=== PATIENT | female | born 1945 | race Caucasian/White ===

== ENCOUNTER 2019-11-25 08:00 | Day surgery (SDC) | payer MEDICARE, OTHER ==
[~2019-11-25] VITALS: Ht 177.8 cm; Wt 97.5 kg
[~2019-11-25 08:00] MED LIST: TRAZODONE HCL100 MG PO
--- NOTE | 2019-11-25 10:34 | NUR ---
11/25/19 Cassandra4 Madonna Marquez 1026- PT ARRIVES TO PACU ALERT AND ORIENTED TALKING WITH STAFF. RESP EVEN AND UNLABORED. OXYGEN SAT HIGH 90'S TO 100% ON 2L VIA NC. PT REPORTS NO PAIN OR NAUSEA. 1033- OXYGEN TITRATED OFF. PT SITTING UP IN BED. PT REPORTS NO DIZZINESS, NAUSEA, OR PAIN.
--- NOTE | 2019-11-28 09:22 | OR ---
[facility] [address] [place], [place] [address] Signed DATE OF OPERATION: 11/25/2019 SURGEON: Prerna Ureña MD PREOPERATIVE DIAGNOSES: 1. History of polyps in 2006, normal colonoscopy 2011. 2. Family history of colon cancer (father). POSTOPERATIVE DIAGNOSES: 1. Sigmoid diverticulosis. 2. Internal hemorrhoids. 3. Polyps x2 (cecum and 60 cm). PROCEDURE: Total colonoscopy to cecum with cold morcellation, excision of polyp at 50 cm and hot snare polypectomy at cecum. ANESTHESIA: Intravenous sedation, fentanyl 100 mcg, Versed 5 mg. INDICATION: This 74-year-old white woman is a patient of MEAGAN Coy. She had undergone colonoscopy by me in the past including excision of a tubular adenoma in the transverse colon in 2006. Her last colonoscopy in 2011 was normal. She does have family history of colon cancer in her father who lived to [facility]. She is symptom free currently. She is admitted to undergo surveillance colonoscopy, understand the risks of bleeding, infection, and perforation. FINDINGS: The prep was excellent. Complete colonoscopy was undertaken to the cecum without question. She had numerous diverticula of the sigmoid and left colon. There were two polyps, one in the cecum, one in the left colon at 50 cm, both excised completely. She also had internal hemorrhoids on retroflexed view. DESCRIPTION OF PROCEDURE: The patient was brought to the endoscopy suite and placed in lateral decubitus position, given intravenous sedation to the point of slurred speech and nystagmus. Digital rectal examination was normal. An Olympus video colonoscope was passed in the rectum and manipulated throughout the Electronically Signed By: PRERNA UREÑA MD 11/28/19 0922 PATIENT NAME: CATERINA BARILLAS OPERATIVE REPORT DATE OF : 43 REPORT #: [id number] PHYSICIAN: PRERNA UREÑA MD PCP: NELLI MIRANDA PA-C REPORT IS CONFIDENTIAL AND NOT TO BE RELEASED WITHOUT AUTHORIZATION [facility] [address] [place], [place] [address] Signed colon noting numerous diverticula of the sigmoid and left colon. Scope was ultimately passed to the cecum. The ileocecal valve and appendiceal orifice were normal. There was mild inflammation of the cecum and a biopsy was taken there. The scope was withdrawn short distance and a small polyp was noted that was likely adenomatous based on its appearance with narrow band imaging. This was excised with hot snare polypectomy technique and additional cold morcellation technique. Once completely gone, the scope was then withdrawn. Examination showed no sign of abnormality until 50 cm from the anal verge where a small polyp was noted and this was excised with cold morcellation technique. Further withdrawal of scope confirmed multiple diverticula. Retroflexed view of the rectum showed internal hemorrhoids. She was taken to recovery room in good condition. CONCLUDING DIAGNOSES: Two polyps and diverticulosis and internal hemorrhoids. PLAN: Recommend high-fiber diet. Repeat colonoscopy in 5 years sooner if symptoms should occur. She will return to the ongoing care for MEAGAN Coy. MD LINDY Gann/KATHY /[id number] cc: Nelli Miranda PA-C Copies: NELLI MIRANDA PA-C ~ Electronically Signed By: PRERNA UREÑA MD 11/28/19 0922 PATIENT NAME: CATERINA BARILLAS OPERATIVE REPORT DATE OF : 43 REPORT #: [id number] PHYSICIAN: PRERNA UREÑA MD PCP: NELLI MIRANDA PA-C REPORT IS CONFIDENTIAL AND NOT TO BE RELEASED WITHOUT AUTHORIZATION
--- NOTE | 2019-11-28 17:17 | PATH ---
[facility] [address] [place], [place] [address] Signed SPECIMEN(S): A CECUM SPECIMEN(S): B CECAL POLYP SPECIMEN(S): C COLON POLYP AT 50 CM SPECIMEN SOURCE: A. CECUM B. CECAL POLYP C. COLON POLYP AT 50 CM CLINICAL HISTORY: History of polyp. Family history of colon cancer. Post: Internal hemorrhoids, diverticulosis, polyp x2. MICROSCOPIC DESCRIPTION: Histologic sections of all submitted blocks are examined by light microscopy. These findings, together with the gross examination, support the pathologic diagnosis. FINAL PATHOLOGIC DIAGNOSIS: A. Colon, cecum, biopsy: - Fragments of colonic mucosa with no histopathologic abnormality. - Negative for dysplasia or malignancy. B. Colon, cecum, polyp, polypectomy: - Fragments of colonic mucosa with mucosal capillary congestion and hemorrhage. - Fragments of submucosal tissue. - Negative for dysplasia or malignancy. - See Comment. C. Colon, polyp at 50 cm, polypectomy: - Fragments of tubular adenoma. - Negative for high-grade dysplasia or malignancy. COMMENT: Multiple additional levels of the "cecal polyp" were examined. No signs of ischemia, including lamina propria fibrosis, crypt injury, or ulceration is seen. No histologic evidence of a lesion is noted. Correlation with clinical and colonoscopic findings is recommended. NAL:cml:C2NR GROSS DESCRIPTION: Three specimens are received in three containers, labeled "CA." A. The specimen, labeled "CA, #1" and "cecum" on the requisition, is received PATIENT NAME: NARGISCATERINA PATHOLOGY DATE OF : 43 REPORT #: [id number] PHYSICIAN: GAUDENCIO SHEEHAN PCP: MAYELIN CAMPOS PA-C REPORT IS CONFIDENTIAL AND NOT TO BE RELEASED WITHOUT AUTHORIZATION [facility] [address] [place], [place] [address] Signed in formalin and consists of two soft colbert tissue fragments that measure 0.2 and 0.3 cm that are submitted in toto in cassette A1. B. The specimen, labeled "CA, #2" and "cecal polyp" on the requisition, is received in formalin and consists of seven soft colbert red tissue fragments that vary from 0.1-0.2 cm and are submitted in toto in cassette B1. C. The specimen, labeled "CA, #3" and "colon polyp at 50 cm" on the requisition, is received in formalin and consists of three soft colbert tissue fragments that measure 0.1 cm each and are submitted in toto in cassette C1. SS (under the direct supervision of a pathologist) The Gross Description was prepared using a voice recognition system. The report was reviewed for accuracy; however, sound-alike word errors, addition and/or deletions may occur. If there is any question about this report, please contact Client Services. PERFORMING LABORATORY: The technical component was performed by [facility], [address] [place] [id number] (Kennel Operator: Yaa Bauman MD; CLIA# [id number]). [facility], [address] [address] (CLIA# [id number]). Diagnostician: Chika Kahn MD Pathologist Electronically Signed 11/28/2019 Copies: ~ PATIENT NAME: CATERINA BARILLAS PATHOLOGY DATE OF : 43 REPORT #: [id number] PHYSICIAN: GAUDENCIO PATHOLOGY PCP: MAYELIN CAMPOS PA-C REPORT IS CONFIDENTIAL AND NOT TO BE RELEASED WITHOUT AUTHORIZATION
== END 2019-11-25 11:05 | disposition home or self-care (01) ==
LOC: DS 08:00 → OPS 08:00
PROVIDERS: Surgery
PROC: 0DBE8ZZ Excision of Large Intestine, Via Natural or Artificial Opening Endoscopic (ICD-10-PCS; 2019-11-25)
PROC: 0DBH8ZZ Excision of Cecum, Via Natural or Artificial Opening Endoscopic (ICD-10-PCS; principal; 2019-11-25 08:30)
DX: Z12.11 Encounter for screening for malignant neoplasm of colon (principal); D12.6 Benign neoplasm of colon, unspecified; K63.5 Polyp of colon; K57.30 Diverticulosis of large intestine without perforation or abscess without bleeding; K64.8 Other hemorrhoids; K52.9 Noninfective gastroenteritis and colitis, unspecified; Z86.010 Personal history of colon polyps; Z80.0 Family history of malignant neoplasm of digestive organs; Z88.5 Allergy status to narcotic agent; Z79.899 Other long term (current) drug therapy; Z98.890 Other specified postprocedural states
CPT/HCPCS: J2250; J3010; J7121

== ENCOUNTER 2021-05-15 10:55 | Emergency (ER) | payer MEDICARE, OTHER ==
[~2021-05-15] VITALS: Ht 177.8 cm; Wt 97.5 kg
[2021-05-15] MEDS ORDERED: LIPITOR40 MG PO (15:48)
--- NOTE | 2021-05-15 22:31 | EKG ---
[facility] [address] [facility] [place], [place] [address] Signed Sinus bradycardia Otherwise normal ECG No previous ECGs available Confirmed by ROXANNE JACKSON DO ([id number]) on 05/15/2021 10:31:44 PM Electronically Signed By: ROXANNE JACKSON DO 05/15/212230 PATIENT NAME: CATERINA BARILLAS Electrocardiogram DATE OF : 43 PHYSICIAN: ROXANNE JACKSON DO REPORT #: [id number] REPORT IS CONFIDENTIAL AND NOT TO BE RELEASED WITHOUT AUTHORIZATION
== END 2021-05-15 16:26 | disposition home or self-care (01) ==
LOC: ED 10:55
DX: I63.9 Cerebral infarction, unspecified (principal); R29.700 NIHSS score 0; Z87.891 Personal history of nicotine dependence; Z88.8 Allergy status to other drugs, medicaments and biological substances; Z79.899 Other long term (current) drug therapy; Z20.822 Contact with and (suspected) exposure to COVID-19
CPT/HCPCS: 70450; 70496; 70498; 71045; 80053; 80061; 85025; 85610; 85730; 93005; 93010; 99285-25; C9803; Q3014; Q9967; U0003

== ENCOUNTER 2023-03-31 14:26 | Emergency (ER) | payer MEDICARE, OTHER ==
[~2023-03-31] VITALS: Ht 177.8 cm; Wt 88.1 kg
[~2023-03-31 14:26] MED LIST changes: +LIPITOR40 MG PO
[2023-03-31] MEDS ORDERED: ELIQUIS5 MG PO (14:53)
[2023-03-31] MEDS ORDERED: METOPROLOL SUCC25 MG PO (14:53)
[2023-03-31] MEDS ORDERED: HYDROCODON-ACE1 EA10 PO (16:57)
[2023-03-31] MEDS ORDERED: ONDANSETRON ODT4 MG PO (16:57)
[2023-03-31 17:12] VITALS: BP 123/89
== END 2023-03-31 17:15 | disposition home or self-care (01) ==
LOC: ED 14:26
DX: R51.9 Headache, unspecified (principal); Z86.73 Personal history of transient ischemic attack (TIA), and cerebral infarction without residual deficits; Z87.891 Personal history of nicotine dependence; Z88.5 Allergy status to narcotic agent; Z79.01 Long term (current) use of anticoagulants; Z79.899 Other long term (current) drug therapy
CPT/HCPCS: 70450; 99284 25; A9270

== ENCOUNTER 2023-04-07 08:48 | Day surgery (SDC) | payer MEDICARE, OTHER ==
[2023-04-06 09:55] VITALS: BP 127/77
[~2023-04-07] VITALS: Ht 177.8 cm; Wt 86.4 kg
--- NOTE | ~2023-04-07 | OR ---
[facility] [address] [place], [place] [address] Draft DATE OF OPERATION: 04/07/2023 SURGEON: Fito Malave MD PREOPERATIVE DIAGNOSIS: Headache syndrome, rule out right temporal arteritis. POSTOPERATIVE DIAGNOSIS: Headache syndrome, rule out right temporal arteritis. PROCEDURE: Right temporal artery biopsy. ANESTHESIA: Local. PREOPERATIVE HISTORY: Irlanda is a 78-year-old lady with headache syndrome, a recent negative MRI and a positive sedimentation rate, indicating possibly temporal arteritis. She was taken to the operating room for the above-mentioned procedures. OPERATIVE PROCEDURE AND FINDINGS: After informed consent, the patient was taken to the operating room, placed in the semi-sitting position. Monitoring was performed. The patient and procedure were verified. Head was turned to the left. Right face was sterilely prepped and draped. Incision was marked with a marking pencil just anterior to the right tragus in the direction of the temporal artery which was palpated just above this and anterior to the tragus. Plain 1% lidocaine was injected. The skin incision was made through skin and subcutaneous tissue. Hemostasis was obtained with needle point cautery. Dissection deeply identified the temporal artery which was clamped and this 1 cm segment removed. Artery ends were tied with 3-0 silk. Hemostasis was verified. The wound was lavaged. The wound was then closed with 4-0 interrupted Vicryl subcu with 5-0 running nylon. Skin was cleansed. The patient was transported back to same day in good condition. COMPLICATIONS: None. BLOOD LOSS: Minimal. PATIENT NAME: IRLANDA BARILLAS OPERATIVE REPORT DATE OF : 43 REPORT #: [id number] PHYSICIAN: FITO MALAVE MD PCP: MAYELIN CAMPOS PA-C REPORT IS CONFIDENTIAL AND NOT TO BE RELEASED WITHOUT AUTHORIZATION [address] [address] Draft SPECIMEN: To pathology. DRAINS: None. Fito Malave MD GC/ANGELAL /[id number] Copies: ~ PATIENT NAME: IRLANDA BARILLAS OPERATIVE REPORT DATE OF : 43 REPORT #: [id number] PHYSICIAN: FITO MALAVE MD PCP: MAYELIN CAMPOS PA-C REPORT IS CONFIDENTIAL AND NOT TO BE RELEASED WITHOUT AUTHORIZATION
[~2023-04-07 08:48] MED LIST changes: +ELIQUIS5 MG PO; +HYDROCODON-ACE1 EA10 PO; +METOPROLOL SUCC25 MG PO; +ONDANSETRON ODT4 MG PO; +PREDNISONE20 MG PO
[2023-04-07 09:02] VITALS: BP 140/78
--- NOTE | 2023-04-07 10:58 | NUR ---
PT ARRIVES TO UNIT FROM OR VIA STRETCHER. REPORT RECEIVED FROM ELIANA RUTLEDGE. PT REPORTS NO PAIN, NAUSEA, DIZZINESS, N/T, OR SOB. PT IS A&O X4 W/SON AT BEDSIDE. SURGICAL SITE TO RT ANGLICAN IS C/D/I, NO SIGNS OF BLEEDING AT THIS TIME. VS TAKEN. NO IV PER MD ORDER. PT GETTING DRESSED AT THIS TIME, CALL LIGHT WITHIN REACH.
[2023-04-07 11:01] VITALS: BP 127/76
--- NOTE | 2023-04-07 11:25 | NUR ---
IN PT ROOM FOR DISCHARGE EDUCATION. PT AND PT SON STATE VERBAL UNDERSTANDING AT THIS TIME AND NO FURTHER QUESTIONS. PT AMBULATES SELF OFF OF UNIT W/SON AT SIDE, ALL BELONGINGS IN PT POSSESSION. PT STATES NO FURTHER NEEDS.
--- NOTE | 2023-04-08 15:33 | PATH ---
[facility] [address] [place], [place] [address] Signed SPECIMEN(S): A RIGHT TEMPORAL ARTERY BIOPSY SPECIMEN SOURCE: A. RIGHT TEMPORAL ARTERY BIOPSY CLINICAL HISTORY: Headache syndrome. FINAL PATHOLOGIC DIAGNOSIS: Right temporal artery biopsy: - Muscular artery with prominent acute and chronic muscular wall inflammation (arteritis) with focal reactive histiocytes and significant luminal obstruction (greater than 75% luminal obstruction). - See comment. 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 Diagnostic notification to the office of Dr. Malave is initiated by Dr. Poon and will be recorded separately. As part of [facility] Quality Improvement Program, this case was reviewed by another member of our pathology staff. JVR:DS:frandy:C2NR MICROSCOPIC EXAMINATION: Histologic sections of all submitted blocks are examined by light microscopy. These findings, together with the gross examination, support the pathologic diagnosis. GROSS DESCRIPTION: The specimen, labeled and designated "Stephane, right temporal artery," is received in formalin and consists of a torsed segment of red-colbert soft tissue (0.6 x 0.5 x 0.2 cm). The specimen is submitted in toto in cassette (A1). VB (under the direct supervision of a pathologist) The Gross Description was prepared using a voice recognition system. The report was reviewed for accuracy; however, sound-alike word errors, addition and/or deletions may occur. If there is any question about this report, please contact Client Services. PERFORMING LABORATORY: PATIENT NAME: CATERINA BARILLAS PATHOLOGY DATE OF : 43 REPORT #: [id number] PHYSICIAN: GAUDENCIO SHEEHAN PCP: MAYELIN CAMPOS PA-C REPORT IS CONFIDENTIAL AND NOT TO BE RELEASED WITHOUT AUTHORIZATION [address], [place] [address] Signed Technical component was performed by [facility], [address] [place] [address] (CLIA# [id number]). Professional interpretation was performed by [facility] [address] [address] (CLIA#: [id number]). Diagnostician: Michael Poon MD Pathologist Electronically Signed 04/08/2023 Copies: ~ PATIENT NAME: CATERINA BARILLAS PATHOLOGY DATE OF : 43 REPORT #: [id number] PHYSICIAN: GAUDENCIO SHEEHAN PCP: MAYELIN CAMPOS PA-C REPORT IS CONFIDENTIAL AND NOT TO BE RELEASED WITHOUT AUTHORIZATION
== END 2023-04-07 11:35 | disposition home or self-care (01) ==
LOC: DS 08:48 → OPS 08:48 → OPV-DS 10:30 → OPS 11:35
PROVIDERS: ATTEND Otolaryngology
PROC: 03BS0ZX Excision of Right Temporal Artery, Open Approach, Diagnostic (ICD-10-PCS; principal; 2023-04-07 10:30)
DX: I77.6 Arteritis, unspecified (principal)